=== PATIENT | male | born 1935 | race Caucasian/White ===

== ENCOUNTER 2017-10-13 01:11 | Inpatient (IN) | payer MEDICARE, OTHER ==
[~2017-10-13] VITALS: Ht 157.5 cm; Wt 85.4 kg
[2017-10-13] MEDS: ALBUTEROL SULF 0.083% NEB SOLN 3 ML NEB NEB SCH ×2 (00:23→15:15)
[2017-10-13] MEDS ORDERED: ACETAMINOPHEN 325 MG TAB PO ONE (01:30)
[2017-10-13] MEDS ORDERED: CEFTRIAXONE SOD 1 GM VIAL IV ONE (01:30)
[2017-10-13] MEDS ORDERED: SODIUM CHLORIDE 0.9% 1000ML 1,000 ML IV ONE (01:30)
[2017-10-13 01:48] LABS: BASOPHILS % 0.3 % (0.0-1.0); EOSINOPHILS # (AUTO) 0.1 (0.0-0.4); HEMATOCRIT 35.9 % (38.2-49.6); HEMOGLOBIN 11.5 g/dL (14.0-18.0); KETONES,URINE NEGATIVE (NEGATIVE); LEUKOCYTE ESTERASE ,URINE NEGATIVE (NEGATIVE); LYMPHOCYTES # (AUTO) 1.2 (1.0-3.2); MEAN CORPUSCULAR HEMOGLOBIN 28.4 pg (28-32); MEAN CORPUSCULAR VOLUME 88.6 fL (81-99); MONOCYTES # (AUTO) 0.5 (0.2-0.8); MONOCYTES % 4.7 % (4.4-11.3); NEUTROPHILS # (AUTO) 9.4 (2.1-6.9); NEUTROPHILS % 82.7 % (38.7-80.0); NITRITE,URINE NEGATIVE (NEGATIVE); PLATELET COUNT 203 x10e3/uL (140-360); PROTEIN,URINE DIPSTICK NEGATIVE (NEGATIVE); RED BLOOD COUNT 4.05 x10e6/uL (4.3-5.7); RED CELL DISTRIBUTION WIDTH 16.2 % (11.7-14.4); URINE UROBILINOGEN 0.2 mg/dL (0.2 - 1)
[2017-10-13 01:51] LABS: BILIRUBIN,URINE 1+ (NEGATIVE); CLARITY,URINE CLEAR (CLEAR); COLOR,URINE YELLOW (YELLOW)
[2017-10-13 02:03] LABS: BACTERIA,URINE FEW /HPF; EPITHELIAL CELLS,URINE RARE /LPF; RBC,URINE 0-5 /HPF (0-5); WBC,URINE (MAN) 0-5 /HPF (0-5)
[2017-10-13 02:05] LABS: ALANINE AMINOTRANSFERASE 16 IU/L (0-55); ALBUMIN 3.3 g/dL (3.5-5.0); ALBUMIN/GLOBULIN RATIO 0.7 (0.8-2.0); ALKALINE PHOSPHATASE 81 IU/L (40-150); ANION GAP 13.7 mmol/L (8-16); BLOOD UREA NITROGEN 14 mg/dL (7-26); BUN/CREATININE RATIO 15 (6-25); CALCIUM 9.1 mg/dL (8.4-10.2); CARBON DIOXIDE 27 mmol/L (22-29); CHLORIDE 101 mmol/L (98-107); CREATINE KINASE 88 IU/L (30-200); CREATININE, SERUM 0.94 mg/dL (0.72-1.25); EST GLOMERULAR FILTRATION RATE > 60 ML/MIN (60-); GLUCOSE 106 mg/dL (74-118); POTASSIUM 4.7 mmol/L (3.5-5.1); SODIUM 137 mmol/L (136-145)
[2017-10-13 02:12] LABS: TROPONIN I 0.012 ng/mL (0-0.300)
[2017-10-13 02:13] LABS: B-TYPE NATRIURETIC PEPTIDE2 48.3 pg/mL (0-100)
--- NOTE | 2017-10-13 03:01 | Diagnostic Imaging Report ---
EXAM: CHEST SINGLE (PORTABLE), AP 1 view DATE: 10/13/2017 1:25 AM Time stamp on exam: 0222 hours INDICATION: Shortness of breath, fever COMPARISON: None FINDINGS: LINES/TUBES: None LUNGS: Bilateral interstitial thickening and scattered air space opacities in larger consolidation in the left lung base. PLEURA: Trace right and small left pleural effusion. HEART AND MEDIASTINUM: The heart is within normal size limits. Nonspecific prominence of the right paratracheal stripe, may be due to ectatic vasculature, rotation and/or lordotic view. BONES AND SOFT TISSUES: Linear hyperdensity poorly visualized projected over the mid thoracic spine, possibly related to vertebroplasty. Surgical clips right axilla. IMPRESSION: Findings consistent with multifocal pneumonia, predominantly in the left lung base with associated pleural effusion. Nonspecific prominence of the right paratracheal stripe. An upright PA and lateral view of the chest is recommended as follow-up. Signed by: Dr. Dorothy Stephens M.D. on 10/13/2017 2:57 AM
[2017-10-13] MEDS ORDERED: AZITHROMYCIN 500MG/NS 250 ML 250 ML IV STA (03:09)
[2017-10-13] MEDS ORDERED: ACETAMINOPHEN 325 MG TAB PO PRN (03:30)
[2017-10-13] MEDS: SODIUM CHLORIDE 0.9% 1000ML 1,000 ML IV SCH ×3 (03:53→21:04)
[2017-10-13] MEDS ORDERED: OMEPRAZOLE40 MG (05:59)
[2017-10-13] MEDS ORDERED: ALPRAZOLAM0.5 MG PO (05:59)
[2017-10-13] MEDS ORDERED: CYMBALTA30 MG (05:59)
[2017-10-13] MEDS ORDERED: OXYCODONE HCL20 M1 PO (05:59)
[2017-10-13] MEDS ORDERED: GABAPENTIN400 MG PO (05:59)
[2017-10-13] MEDS ORDERED: ZANAFLEX4 MG (05:59)
[2017-10-13] MEDS ORDERED: SERTRALINE HCL50 MG PO (05:59)
[2017-10-13] MEDS ORDERED: ETODOLAC400 M1 (05:59)
[2017-10-13] MEDS ORDERED: NORTRIPTYLINE H25 MG (05:59)
[2017-10-13] MEDS ORDERED: FLOMAX0.4 MG PO (05:59)
[2017-10-13] MEDS: CEFTRIAXONE SOD 1 GM VIAL IV SCH (06:46)
[2017-10-13] MEDS: AZITHROMYCIN 500MG/SOD CHL 0.9% 250ML BAG IV SCH (06:47)
[2017-10-13] MEDS ORDERED: GABAPENTIN 400 MG CAP PO SCH (09:00)
--- NOTE | 2017-10-13 09:17 | History and Physical ---
PRIMARY CARE PHYSICIAN: . CHIEF COMPLAINT: Cough and shortness of breath. HISTORY OF PRESENT ILLNESS: This is 81-year-old man with a history of pneumonia, developing shortness of breath and cough with chills and sweats for the past 2 days. He is found to have multifocal pneumonia. He is admitted for further evaluation and management. PAST MEDICAL HISTORY: Recurrent pneumonia, coronary artery disease status post stent in 2009, colon cancer status post resection and chemotherapy many years ago, lung cancer. PAST SURGICAL HISTORY: Coronary stent placement, colon resection. ALLERGIES: PER ELECTRONIC MEDICAL RECORD. FAMILY HISTORY/SOCIAL HISTORY: Patient is single, 2 children. No alcohol, illicits, or cigarettes. MEDICATIONS: Per electronic medical record. REVIEW OF SYSTEMS: Denies any dizziness or chest pain. PHYSICAL EXAMINATION: VITAL SIGNS: Reviewed. T-max is 100.9, pulse 121, and blood pressure 102/61. GENERAL APPEARANCE: Tired-appearing man resting in bed. HEENT: Anicteric. Pupils respond to light. No oral lesions. CARDIOVASCULAR: Normal S1 and S2. LUNGS: Coarse breath sounds. Coughing with deep inspiration. ABDOMEN: Soft, nontender, nondistended. EXTREMITIES: No edema. SKIN: Dry. PSYCHIATRIC: Flat affect. NEUROLOGICAL: Alert and oriented x3. Moving all extremities. LABS: Reviewed. MEDICATIONS: Reviewed. ASSESSMENT AND PLAN: This is an 81-year-old man. 1. Sepsis. Treat with intravenous fluids, antibiotics. Follow up cultures. 2. Multifocal pneumonia. Antibiotics. Follow up cultures. Also obtain sputum culture. 3. Neuropathy. Continue home medication. 4. Overweight state. Body mass index 25.1. Screen for diabetes, hemoglobin A1c, and lipid panel. 5. Normocytic anemia, mild. Will follow. 6. Physical deconditioning. Physical therapy. 7. Prophylaxis. Will use proton pump inhibitor and Lovenox. 8. Disposition. Follow closely. Job#: [id number]
[2017-10-13 09:25] VITALS: BP 109/59
[2017-10-13 10:25] LABS: CREATINE KINASE MB 1.2 ng/mL (0.00-5.00); TROPONIN I 0.031 ng/mL (0-0.300)
[2017-10-13] MEDS: TIZANIDINE HCL 4 MG TAB PO SCH ×2 (11:10→18:41)
[2017-10-13] MEDS: ALPRAZOLAM 0.5 MG TAB PO SCH ×3 (11:10→21:05)
[2017-10-13] MEDS: PANTOPRAZOLE SOD 40 MG TABEC PO SCH (11:10)
[2017-10-13] MEDS: SERTRALINE HCL 50 MG TAB PO SCH (11:10)
[2017-10-13] MEDS: DULOXETINE HCL 30 MG DELAYED RELEASE PO SCH (11:10)
[2017-10-13] MEDS: GABAPENTIN 300 MG CAP PO SCH ×3 (11:11→21:05)
[2017-10-13] MEDS: BENZONATATE 100 MG CAP PO SCH ×3 (11:11→21:05)
[2017-10-13 12:25] VITALS: BP 110/56
[2017-10-13] MEDS: IPRATROPIUM BROMIDE 0.02% 2.5 ML NEB NEB SCH ×2 (15:15→18:00)
[2017-10-13] MEDS ORDERED: ENOXAPARIN SOD INJ 40 MG/0.4 ML SYR SC SCH (17:00)
[2017-10-13] MEDS: GUAIFENESIN/DEXTROMETHORPHAN LIQD 5 ML UDC NG SCH ×2 (18:41→21:05)
[2017-10-13 18:52] LABS: CREATINE KINASE MB 1.3 ng/mL (0.00-5.00); TROPONIN I 0.01 ng/mL (0-0.300)
[2017-10-13 20:17] VITALS: BP 121/73
[2017-10-13] MEDS ORDERED: TAMSULOSIN HCL 0.4 MG CAP PO SCH (21:00)
[2017-10-13 21:03] VITALS: BP 121/73
[2017-10-13] MEDS ORDERED: OXYCODONE HCL 20 MG TAB CR PO PRN (21:15)
[2017-10-13] MEDS ORDERED: OXYCODONE HCL IR 15 MG TAB PO PRN (21:30)
[2017-10-13] MEDS ORDERED: OXYCODONE HCL IR 5 MG TAB PO PRN (21:45)
[2017-10-14] MEDS: IPRATROPIUM BROMIDE 0.02% 2.5 ML NEB NEB SCH ×2 (00:23→07:08)
[2017-10-14 00:34] VITALS: BP 118/73
[2017-10-14] MEDS: CEFTRIAXONE SOD 1 GM VIAL IV SCH (03:25)
[2017-10-14] MEDS: AZITHROMYCIN 500MG/SOD CHL 0.9% 250ML BAG IV SCH (03:25)
[2017-10-14] MEDS: ALBUTEROL SULF 0.083% NEB SOLN 3 ML NEB NEB SCH ×2 (03:30→07:08)
[2017-10-14] MEDS: SODIUM CHLORIDE 0.9% 1000ML 1,000 ML IV SCH (05:38)
[2017-10-14] MEDS: GUAIFENESIN/DEXTROMETHORPHAN LIQD 5 ML UDC NG SCH (05:38)
[2017-10-14 05:52] VITALS: BP 124/64
[2017-10-14 06:56] LABS: BASOPHILS % 0.3 % (0.0-1.0); EOSINOPHILS # (AUTO) 0.2 (0.0-0.4); EOSINOPHILS % 2.5 % (0.0-6.0); HEMATOCRIT 31.3 % (38.2-49.6); LYMPHOCYTES # (AUTO) 1.4 (1.0-3.2); LYMPHOCYTES % 20.8 % (18.0-39.1); MEAN CORPUSCULAR HEMOGLOBIN 28.7 pg (28-32); MEAN CORPUSCULAR HGB CONC 31.9 g/dL (31-35); MEAN CORPUSCULAR VOLUME 89.7 fL (81-99); MONOCYTES # (AUTO) 0.5 (0.2-0.8); MONOCYTES % 7.6 % (4.4-11.3); NEUTROPHILS # (AUTO) 4.7 (2.1-6.9); NEUTROPHILS % 68.7 % (38.7-80.0); PLATELET COUNT 154 x10e3/uL (140-360); RED BLOOD COUNT 3.49 x10e6/uL (4.3-5.7); RED CELL DISTRIBUTION WIDTH 16.5 % (11.7-14.4)
[2017-10-14] MEDS ORDERED: VENTOLIN HFA18 GM INH (07:26)
[2017-10-14] MEDS ORDERED: Guaifenesin/Dextromethorphan NG (07:26)
[2017-10-14] MEDS ORDERED: TESSALON PERLE100 MG PO (07:26)
[2017-10-14] MEDS ORDERED: LEVAQUIN500 MG PO (07:26)
[2017-10-14 07:29] LABS: ALANINE AMINOTRANSFERASE 12 IU/L (0-55); ALBUMIN 2.5 g/dL (3.5-5.0); ALBUMIN/GLOBULIN RATIO 0.6 (0.8-2.0); ALKALINE PHOSPHATASE 61 IU/L (40-150); ANION GAP 8.8 mmol/L (8-16); BLOOD UREA NITROGEN 9 mg/dL (7-26); BUN/CREATININE RATIO 12 (6-25); CALCIUM 8.4 mg/dL (8.4-10.2); CARBON DIOXIDE 29 mmol/L (22-29); CHLORIDE 108 mmol/L (98-107); CREATININE, SERUM 0.77 mg/dL (0.72-1.25); EST GLOMERULAR FILTRATION RATE > 60 ML/MIN (60-); GLUCOSE 84 mg/dL (74-118); POTASSIUM 3.8 mmol/L (3.5-5.1); SODIUM 142 mmol/L (136-145)
--- NOTE | 2017-10-14 07:53 | Discharge Summary ---
PRINCIPAL DIAGNOSES 1. Sepsis secondary to pneumonia. 2. Multifocal pneumonia. 3. Neuropathy. 4. Overweight state. 5. Normocytic anemia. 6. Physical deconditioning. SECONDARY DIAGNOSIS: Coronary artery disease. CHIEF COMPLAINT: Cough and shortness of breath. HISTORY OF PRESENT ILLNESS: An 81-year-old man with cough and shortness of breath. Refer to the H and P for further details. HOSPITAL COURSE: The patient was found to have sepsis and treated with IV fluids and antibiotics with recovery. He had multifocal pneumonia. His cough has improved. His respiratory status has improved. He had overweight state. BMI 25.1. His hemoglobin A1c is still not obtained. He needs to follow up outpatient for testing. He is doing better and currently appropriate for discharge. Follow up. DISCHARGE MEDICATIONS: Per electronic medical records, and include Levaquin for 7 days. CONDITION ON DISCHARGE: Stable and improving. DISCHARGE LOCATION: Home. He is also being discharged with Ventolin HFA inhaler and antitussive medications. Patient's son has requested [place] pain medication for his chronic pain problems as he is unable to reach his pain specialist at this time. He will be given 40 tablets with no refills of 5 per 325 mg. FOLLOWUP 1. Primary care doctor in 1 week. 2. Follow up with pain specialist in 1 week. DONNY NEWBY MD Job#: [id number] [place]
--- NOTE | 2017-10-14 08:19 | Diagnostic Imaging Report ---
PROCEDURE:CHEST SINGLE (PORTABLE) TECHNIQUE:Portable AP chest INDICATION:Pneumonia COMPARISON:Patients [facility], , CHEST SINGLE (PORTABLE), 10/13/2017, 2:22. FINDINGS: Progressive bilateral interstitial and left lower lobe airspace opacity. Small left pleural effusion. Normal heart size. Prominent central vasculature with mild peribronchial cuffing. Intact skeleton. CONCLUSION: 1. Interval progression of bilateral interstitial opacities suggest worsening pulmonary edema with superimposed left lower lobe pneumonia. 2. Small left pleural effusion. Dictated by: Mazin Ross M.D. on 10/14/2017 at 8:28 Electronically approved by: Mazin Ross M.D. on 10/14/2017 at 8:28
[2017-10-14 08:28] VITALS: BP 168/75
[2017-10-14] MEDS: BENZONATATE 100 MG CAP PO SCH (09:55)
[2017-10-14] MEDS: PANTOPRAZOLE SOD 40 MG TABEC PO SCH (09:55)
[2017-10-14] MEDS: DULOXETINE HCL 30 MG DELAYED RELEASE PO SCH (09:55)
[2017-10-14] MEDS: GABAPENTIN 300 MG CAP PO SCH (09:55)
[2017-10-14] MEDS: ALPRAZOLAM 0.5 MG TAB PO SCH (09:55)
[2017-10-14] MEDS: SERTRALINE HCL 50 MG TAB PO SCH (09:56)
[2017-10-14] MEDS: TIZANIDINE HCL 4 MG TAB PO SCH (09:56)
[2017-10-14 12:29] VITALS: BP 136/83
== END 2017-10-14 11:43 | disposition home or self-care (01) | DRG 871 ==
LOC: ER 01:11 → ERHOLD 03:26 → EDBEDREQ 03:59 → MED/SURG2 19:37
PROVIDERS: ADMIT Internal Medicine; ATTEND Internal Medicine
DX: A41.9 Sepsis, unspecified organism (principal); J18.9 Pneumonia, unspecified organism; G62.9 Polyneuropathy, unspecified; D64.9 Anemia, unspecified; Z68.25 Body mass index [BMI] 25.0-25.9, adult; E66.3 Overweight; Z87.891 Personal history of nicotine dependence; I25.10 Atherosclerotic heart disease of native coronary artery without angina pectoris; Z95.5 Presence of coronary angioplasty implant and graft; Z85.118 Personal history of other malignant neoplasm of bronchus and lung; Z85.038 Personal history of other malignant neoplasm of large intestine
CPT/HCPCS: 36415; 71010; 80053; 81001; 82550; 82553; 83605; 83880; 84484; 85025; 87040; 87086; 87400; 93005; 96360; 96365; 99284; J0456; J0696; J1650; J7030